=== PATIENT | male | born 1970 | race Caucasian/White ===

== ENCOUNTER → 2021-10-29 12:37 | Outpatient (BNVA) | payer OTHER, SELFPAY | PROVIDERS: PCP Internal Medicine; Visit Provider Physician Assistant Medical | DX: S93.492A Sprain of other ligament of left ankle, initial encounter (principal); X50.1XXA Overexertion from prolonged static or awkward postures, initial encounter | CPT/HCPCS: 73610; 99203 ==

== ENCOUNTER → 2021-11-04 09:02 | Outpatient (BNVA) | payer OTHER, SELFPAY | PROVIDERS: PCP Internal Medicine; Visit Provider Physician Assistant Medical | DX: S93.492A Sprain of other ligament of left ankle, initial encounter (principal); X58.XXXA Exposure to other specified factors, initial encounter | CPT/HCPCS: 99213 ==

== ENCOUNTER → 2021-11-12 08:59 | Outpatient (BNVA) | payer OTHER, SELFPAY | PROVIDERS: PCP Internal Medicine; Visit Provider Physician Assistant Medical | DX: S93.492A Sprain of other ligament of left ankle, initial encounter (principal); X50.1XXA Overexertion from prolonged static or awkward postures, initial encounter | CPT/HCPCS: 99213 ==

== ENCOUNTER → 2021-11-14 09:52 | Outpatient (BNVA) | payer OTHER, SELFPAY | PROVIDERS: PCP Internal Medicine; Visit Provider Physician Assistant | DX: S93.402A Sprain of unspecified ligament of left ankle, initial encounter (principal) | CPT/HCPCS: 99202 ==

== ENCOUNTER → 2021-12-17 11:10 | Outpatient (BNVA) | payer OTHER, SELFPAY | PROVIDERS: PCP Internal Medicine; Visit Provider Physician Assistant | DX: S93.402D Sprain of unspecified ligament of left ankle, subsequent encounter (principal) | CPT/HCPCS: 99212 ==

== ENCOUNTER → 2022-01-14 12:48 | Outpatient (BNVA) | payer OTHER, SELFPAY | PROVIDERS: PCP Internal Medicine; Visit Provider Physician Assistant | DX: S93.402A Sprain of unspecified ligament of left ankle, initial encounter (principal); W01.0XXA Fall on same level from slipping, tripping and stumbling without subsequent striking against object, initial encounter; Y93.89 Activity, other specified; Y92.69 Other specified industrial and construction area as the place of occurrence of the external cause; Y99.0 Civilian activity done for income or pay; Z98.84 Bariatric surgery status | CPT/HCPCS: 99212 ==

== ENCOUNTER 2022-02-03 07:22 | Outpatient (REF) | payer OTHER, SELFPAY ==
--- NOTE | ~2022-02-03 | MR_ITS ---
EXAMINATION: MR ANKLE WITHOUT CONTRAST, LEFT CLINICAL INFORMATION: Left ankle pain both medial and lateral. Injury on 10/29/2021. COMPARISON: Left ankle radiographs dated 10/29/2021. TECHNIQUE: Multisequence MR imaging of the left ankle was obtained without contrast on a high-field strength scanner. FINDINGS: BONE AND ARTICULAR CARTILAGE: Full-thickness articular cartilage fissuring at the medial aspect of the tibial plafond with underlying subchondral cystic change and marrow edema at the base of the medial malleolus. No talar osteochondral lesion. No acute stress reaction or fracture. Plantar and dorsal calcaneal spurs. ACHILLES TENDON: Normal. OTHER TENDONS: Intact. LIGAMENTS: No evidence of acute ligament injury. JOINT FLUID AND SOFT TISSUES: No joint effusion. Subcutaneous soft tissues are normal. PLANTAR FASCIA: Intact plantar fascia. Small plantar calcaneal spur with mild marrow edema. SINUS TARSI AND TARSAL TUNNEL: Normal. MR/MR ankle LT wo con IMPRESSION: 1. Full-thickness articular cartilage fissuring with underlying subchondral cystic change and marrow edema at the medial aspect of the tibial plafond and within the base of the medial malleolus. No talar osteochondral lesion. 2. No acute fracture or stress reaction. 3. Small plantar calcaneal spur and intact plantar fascia. 4. No acute tendon or ligament injury.
== END 2022-02-03 07:23 | disposition home or self-care (01) ==
LOC: HO.MRI 07:22
PROVIDERS: PCP Internal Medicine; Visit Provider Physician Assistant
DX: S93.402A Sprain of unspecified ligament of left ankle, initial encounter (principal)
CPT/HCPCS: 73721

== ENCOUNTER → 2022-02-10 10:18 | Outpatient (BNVA) | payer OTHER, SELFPAY | PROVIDERS: PCP Internal Medicine; Visit Provider Physician Assistant | DX: M25.572 Pain in left ankle and joints of left foot (principal); S90.02XA Contusion of left ankle, initial encounter; X50.3XXA Overexertion from repetitive movements, initial encounter; Y93.89 Activity, other specified; Y92.69 Other specified industrial and construction area as the place of occurrence of the external cause; Y99.8 Other external cause status; Z98.84 Bariatric surgery status | CPT/HCPCS: 99212 ==

== ENCOUNTER 2022-02-28 11:00 | Outpatient (RCR) | payer OTHER, SELFPAY ==
--- NOTE | 2021-11-11 14:44 | MHC.PT.EP ---
[facility] [place] Office [place] Office [place] Office [address] Remy Fraire [address] [phone] F: [phone] F: [phone] F: [phone] F: [phone] Physical Therapy Plan of Care Date of Evaluation: Date of Surgery: N/A Diagnosis: L high lateral ankle sprain Assessment: pt presents w/ hyper-dorsiflexion moment secondary to slipping at work. pt presents to physical therapy with pain, decreased range of motion, decreased strength, impaired functional mobility, impaired postural awareness, and gait deviations. pt is a good candidate for skilled PT due to age, potential remediation of impairments, typical disease/condition progression and prognosis, comorbidities, and motivation. pt would benefit from tailored strengthening and stretching exercise program, functional training, gait training, postural re-training, neuromuscular re-education, modalities as needed for pain, equipment safety demonstration. Frequency and Duration: The patient will be seen 2x/wk for 6 wks Short Term Goals: pt will be I w/ HEP to promote self-management of condition. pt will improve L ankle DF AROM to at least 0 degrees to promote heel strike at initial contact for ambulation using LRAD. pt will progress to WBAT w/ LRAD on even ground to promote progressive weight bearing for household distances. 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 pt will lift 50# object from floor to chest height x5 reps using proper lifting mechanics and no verbal cueing to promote safe lifting for return to work. pt will ambulate >2600' w/o an AD WBAT to promote return to PLOF and access to community. pt will report a statistically significant improvement in self-reported outcome measure, LEFI, to promote return to PLOF. Treatment Plan: Modalities to reduce pain, spasms and effusion. Manual therapy to restore motion and function. Therapeutic exercise to improve strength and flexibility. Neuromuscular re-education for posture and balance. Therapeutic activities to return to functional activities of daily living. Electronically signed by: Ashlee Stoner PT, DPT Please sign and return to therapist. Thank you for your referral.
--- NOTE | 2022-02-28 11:41 | MHC.PT.DC ---
[facility] [place] [facility] [place] Office [place] Office [address] Remy Fraire [address] [phone] F: [phone] F: [phone] F: [phone] F: [phone] Physical Therapy Discharge Report Diagnosis: L high lateral ankle sprain Date of Surgery: N/A Date of Evaluation: 11/11/21 Date of Discharge: 02/28/22 Treatments to Date: 19 Cancellations to Date: 9 No Shows to Date: 0 Discharge Status: Improved Function Independent with HEP Recommend MD Follow-up Discharge Summary: The patient overall has plateaued in his progress with physical therapy. 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 His ankle range of motion and strength are within functional limits. He continues to report persistent lateral ankle pain that radiates up to his lateral knee of a 7/10 intensity. He has trialed therapeutic exercise, therapeutic activity, neuromuscular re-education including proprioception and balance training, modalities such as heat/massage/kinesiotape, and external support such as a lace up-ASO and shoe insert. His home exercise program was reviewed today. He is discharged from this physical therapy plan of care to his home exercise program and recommendations to follow-up with the orthopedic to determine other potential pain management options. Electronically signed by: Ashlee Stoner PT, DPT Please sign and return to therapist. Thank you for your referral.
== END 2022-02-28 11:42 | disposition home or self-care (01) ==
LOC: HO.PT 11:00
PROVIDERS: Visit Provider Physician Assistant Medical
DX: S93.492D Sprain of other ligament of left ankle, subsequent encounter (principal)
CPT/HCPCS: 97110; 97112; 97116; 97140; 97161; 97164; 97530

== ENCOUNTER → 2022-03-24 09:13 | Outpatient (BNVA) | payer OTHER, SELFPAY | PROVIDERS: PCP Internal Medicine; Visit Provider Physician Assistant | DX: S90.02XD Contusion of left ankle, subsequent encounter (principal) | CPT/HCPCS: 99212 ==

== ENCOUNTER → 2022-04-22 09:36 | Outpatient (BNVA) | payer OTHER, SELFPAY | PROVIDERS: PCP Internal Medicine; Visit Provider Physician Assistant | DX: S90.02XD Contusion of left ankle, subsequent encounter (principal); S93.402D Sprain of unspecified ligament of left ankle, subsequent encounter | CPT/HCPCS: 99212 ==

== ENCOUNTER 2023-05-10 12:48 | Emergency (ER) | payer OTHER, SELFPAY ==
--- NOTE | ~2023-05-10 | XR_ITS ---
Examination: Left hip and AP pelvis, lumbar spine, left foot and left ankle. Clinical indications: Pain. No injury. TECHNIQUE: AP pelvis left hip 3 views. Lumbar spine 3 views. Left foot 3 views and left ankle 2 views. FINDINGS: AP pelvis and left hip: There is normal symmetry of bilateral hip joints and SI joints without bony erosive changes. AP and frog-leg views left hip reveals no visible fracture, dislocation or subluxation. No soft tissue abnormality. Lumbar spine: There is normal lumbar lordosis. The vertebral heights, alignment and disc heights are normal. Is mild ventral spondylosis and anterior superior endplates of L4-L5 vertebra. No aggressive lytic or sclerotic process seen. Left foot: There is no visible acute fracture, dislocation subluxation seen. There is a small enthesophyte along the base of fifth metatarsal and proximal end proximal phalanx first digit laterally. No aggressive lytic or sclerotic process seen. The soft tissues are normal. Left ankle: The ankle mortise and subtalar joints are normal. There is a moderate size retrocalcaneal and small calcaneal heel enthesophyte. The soft tissues are normal. XR/XR ankle LT min 3V IMPRESSION: No visible acute fracture, dislocation seen in the AP pelvis of the left hip x-rays. There is moderate ventral and chest x-ray enthesophytes along the L4-L5 vertebra. No acute fracture or dislocation seen. There are enthesophytes along the left foot in the left distal medial tibia retrocalcaneal and calcaneal heel and left foot. No fracture visible fracture or dislocation seen.
--- NOTE | ~2023-05-10 | XR_ITS ---
Examination: Left hip and AP pelvis, lumbar spine, left foot and left ankle. Clinical indications: Pain. No injury. TECHNIQUE: AP pelvis left hip 3 views. Lumbar spine 3 views. Left foot 3 views and left ankle 2 views. FINDINGS: AP pelvis and left hip: There is normal symmetry of bilateral hip joints and SI joints without bony erosive changes. AP and frog-leg views left hip reveals no visible fracture, dislocation or subluxation. No soft tissue abnormality. Lumbar spine: There is normal lumbar lordosis. The vertebral heights, alignment and disc heights are normal. Is mild ventral spondylosis and anterior superior endplates of L4-L5 vertebra. No aggressive lytic or sclerotic process seen. Left foot: There is no visible acute fracture, dislocation subluxation seen. There is a small enthesophyte along the base of fifth metatarsal and proximal end proximal phalanx first digit laterally. No aggressive lytic or sclerotic process seen. The soft tissues are normal. Left ankle: The ankle mortise and subtalar joints are normal. There is a moderate size retrocalcaneal and small calcaneal heel enthesophyte. The soft tissues are normal. XR/XR lumbar spine 2-3V IMPRESSION: No visible acute fracture, dislocation seen in the AP pelvis of the left hip x-rays. There is moderate ventral and chest x-ray enthesophytes along the L4-L5 vertebra. No acute fracture or dislocation seen. There are enthesophytes along the left foot in the left distal medial tibia retrocalcaneal and calcaneal heel and left foot. No fracture visible fracture or dislocation seen.
--- NOTE | ~2023-05-10 | XR_ITS ---
Examination: Left hip and AP pelvis, lumbar spine, left foot and left ankle. Clinical indications: Pain. No injury. TECHNIQUE: AP pelvis left hip 3 views. Lumbar spine 3 views. Left foot 3 views and left ankle 2 views. FINDINGS: AP pelvis and left hip: There is normal symmetry of bilateral hip joints and SI joints without bony erosive changes. AP and frog-leg views left hip reveals no visible fracture, dislocation or subluxation. No soft tissue abnormality. Lumbar spine: There is normal lumbar lordosis. The vertebral heights, alignment and disc heights are normal. Is mild ventral spondylosis and anterior superior endplates of L4-L5 vertebra. No aggressive lytic or sclerotic process seen. Left foot: There is no visible acute fracture, dislocation subluxation seen. There is a small enthesophyte along the base of fifth metatarsal and proximal end proximal phalanx first digit laterally. No aggressive lytic or sclerotic process seen. The soft tissues are normal. Left ankle: The ankle mortise and subtalar joints are normal. There is a moderate size retrocalcaneal and small calcaneal heel enthesophyte. The soft tissues are normal. XR/XR hip LT w PEL1V IMPRESSION: No visible acute fracture, dislocation seen in the AP pelvis of the left hip x-rays. There is moderate ventral and chest x-ray enthesophytes along the L4-L5 vertebra. No acute fracture or dislocation seen. There are enthesophytes along the left foot in the left distal medial tibia retrocalcaneal and calcaneal heel and left foot. No fracture visible fracture or dislocation seen.
--- NOTE | ~2023-05-10 | XR_ITS ---
Examination: Left hip and AP pelvis, lumbar spine, left foot and left ankle. Clinical indications: Pain. No injury. TECHNIQUE: AP pelvis left hip 3 views. Lumbar spine 3 views. Left foot 3 views and left ankle 2 views. FINDINGS: AP pelvis and left hip: There is normal symmetry of bilateral hip joints and SI joints without bony erosive changes. AP and frog-leg views left hip reveals no visible fracture, dislocation or subluxation. No soft tissue abnormality. Lumbar spine: There is normal lumbar lordosis. The vertebral heights, alignment and disc heights are normal. Is mild ventral spondylosis and anterior superior endplates of L4-L5 vertebra. No aggressive lytic or sclerotic process seen. Left foot: There is no visible acute fracture, dislocation subluxation seen. There is a small enthesophyte along the base of fifth metatarsal and proximal end proximal phalanx first digit laterally. No aggressive lytic or sclerotic process seen. The soft tissues are normal. Left ankle: The ankle mortise and subtalar joints are normal. There is a moderate size retrocalcaneal and small calcaneal heel enthesophyte. The soft tissues are normal. XR/XR foot LT 2V IMPRESSION: No visible acute fracture, dislocation seen in the AP pelvis of the left hip x-rays. There is moderate ventral and chest x-ray enthesophytes along the L4-L5 vertebra. No acute fracture or dislocation seen. There are enthesophytes along the left foot in the left distal medial tibia retrocalcaneal and calcaneal heel and left foot. No fracture visible fracture or dislocation seen.
--- NOTE | 2023-05-10 13:02 | ED_ITS ---
HPI - General Adult General Chief complaint: Extremity Injury, Lower Stated complaint: L foot pain Time Seen by Provider: 05/10/23 14:20 Source: patient Mode of arrival: ambulatory Limitations: no limitations History of Present Illness HPI narrative: 53 yo male w/ history of chronic left ankle pain here with continued left ankle pain, now with left sided lower back pain with radiation to left hip and down left thigh since last night. No numbness/tingling of the legs. No numbness in the groin. No bowel or bladder incontinence. No fevers, chills. Taking OTC with no relief. No falls or injury Related Data Home Medications Medication Instructions Recorded Confirmed cholecalciferol (vitamin D3) 50 50 mcg PO DAILY 03/24/22 mcg (2,000 unit) capsule ferrous sulfate 324 mg (65 mg 324 mg PO BID 03/24/22 iron) tablet,delayed release multivitamin with folic acid 400 1 tab PO DAILY 03/24/22 mcg tablet (Daily-Nicolette (with folic acid)) naproxen sodium 550 mg tablet 550 mg PO BID PRN 03/24/22 omeprazole 20 mg tablet,delayed 20 mg PO DAILY 03/24/22 release Previous Rx's Medication Instructions Recorded cyclobenzaprine 10 mg tablet 10 mg PO TID PRN muscle spasm #15 05/10/23 tabs naproxen 500 mg tablet 500 mg PO BID PRN pain #30 tabs 05/10/23 prednisone 20 mg tablet 40 mg PO DAILY #10 tabs 05/10/23 Allergies Allergy/AdvReac Type Severity Reaction Status Date / Time No Known Allergies Allergy Verified 05/10/23 13:16 Review of Systems Review of Systems: Yes all other systems are reviewed and are negative Constitutional: Constitutional: Reports no additional constitutional complaints, Denies body ache(s), Denies chills, Denies fever(s), Denies headache(s) and Denies weakness Eyes: Eyes: Reports no additional eye complaints and Denies change in vision ENT: Reports system reviewed and no additional complaints, except as documented, Denies dizziness, Denies headache(s), Denies nasal congestion, Denies nasal discharge and Denies neck pain Cardiovascular: Cardiovascular: Reports no additional cardiovascular complaints, Denies chest pain, Denies leg edema and Denies dyspnea Respiratory: Respiratory: Reports no additional respiratory complaints, Denies cough and Denies dyspnea Gastrointestinal: Gastrointestinal: Reports no additional gastrointestinal complaints, Denies abdominal pain, Denies diarrhea, Denies nausea and Denies vomiting Genitourinary: Genitourinary: Denies urinary incontinence Musculoskeletal: Musculoskeletal: Reports no additional musculoskeletal complaints, Reports back pain, Reports arthralgias, Reports joint swelling, Denies neck pain, Denies numbness and Denies tingling Integumentary/Breasts: Skin/Breast: Reports system reviewed and no additional complaints, except as docu and Denies rash Neurologic: Reports system reviewed and no additional complaints, except as documented, Denies dizziness, Denies headache(s), Denies numbness, Denies tingling and Denies weakness PMFSH Past Medical History Attestation statement: The following information was validated with the patient. 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 Physical Exam ED Vital Signs: Vital Signs - 24 hr 05/10/23 13:16 Temperature 98 F Pulse Rate 72 Respiratory Rate 19 Blood Pressure 128/85 Pulse Oximetry 98 BMI result Body Mass Index 29.1 Const General: cooperative, healthy appearing, comfortable and no acute distress Orientation/consciousness: patient oriented x3 Limitations: no limitations HENMT Head: Yes normal to inspection Ears: hearing grossly normal bilaterally Eyes General: appearance normal, both eyes and all related structures Pupils: Equal, round and reactive pupils present Neck Neck: Yes normal visual inspection Chest Chest palpation & inspection: normal inspection of the chest Resp Effort & Inspection: normal respiratory effort Auscultation: clear to auscultation bilaterally Cardio Rate: regular rate Rhythm: regular rhythm Peripheral pulses: Peripheral pulses 2+ throughout GI Inspection: Yes normal to inspection Palpation (GI): Soft to palpation and nontender Back/Spine/Pelvis Other: TTP over lumbar spine/left lumbar soft tissue, left lateral hip worsened with straight leg raise left side. No step offs or deformities Thoracic/Lumbar Spine: thoracic and lumbar spine normal to inspection Skin General skin exam: no rashes or lesions noted Neuro General: patient oriented x3 and moves all extremities Cranial nerves: Yes Equal, round and reactive pupils present Cognition (Neuro): normal cognition Gait exam (Neuro): Normal gait present Motor exam (neuro): 5/5 motor strength present throughout Sensory Exam: Normal double simultaneous stimulation for sensation Deep tendon reflexes (DTR's): Right patellar reflex intensity grade: 2+ and Left patellar reflex intensity grade: 2+ Course Course Course Narrative: This is an RME: Additional HPI, ROS, PE not included below will be deferred to primary provider. Patient is a 53 year old male presenting with left ankle pain present for the past year however reports radiation of pain up to knee and hip since Thursday. Patient is followed by the orthopedic team here for ankle pain and had an ankle MRI done 02/03/22. Reports pain currently 09/01. PE- Full ROM to left ankle however uncomfortable Plan- imaging Reevaluation(s) Reevaluation #1: X-rays of the back show no acute fracture or dislocation. There is degenerative changes seen in the lower back. There are also chronic changes seen in the left ankle. Likely lumbar radiculopathy. Patient be discharged home with NSAIDs, muscle relaxants and recommendations follow-up with primary care doctor outpatient. Reviewed worrisome signs and symptoms of when to return to the emergency room. Comfortable plan for discharge home. Medications Administered Discontinued Medications Generic Name Dose Route Start Last Admin Trade Name Sarojq PRN Reason Stop Dose Admin Ketorolac Tromethamine 30 mg 05/10/23 14:41 05/10/23 14:50 Ketorolac Tromethamine 30 Mg/Ml Vial IM 05/10/23 14:42 30 mg ONCE ONE Administration Medical Decision Making Medical Decision Making [facility] Narrative: 53 yo male with history of chronic left ankle pain here with complaints of atraumatic left lower back pain with radiation to left hip since last evening. No overt neurological deficits or red flag symptoms. There is tenderness impatient over the posterior lumbar soft tissue left side and over the left hip. Will check x-rays. Patient had x-rays of the left ankle and foot done triage. He reports is a chronic pain with no new injury or trauma. Differential Diagnosis Differential Diagnoses: The differential diagnosis associated with the presentation includes Lumbar radiculopathy, herniated disc, lumbar strain Low concern for cord compression, cauda equina, fracture, malignancy, epidural abscess Independent Interpretation I performed an independent interpretation of an: Plain X-Ray Interpretation: I independently reviewed the x-rays and agree with the radiologist's report Radiology Impression Discussion of test interpretation with radiology: I have reviewed the radiologist's reading. Radiologist Impression: [address] [address] XRay Report Signed Patient: Cale Guillen MR#: [id number] : 1970 Acct:[id number] Age/Sex: 53 / M ADM Date: 05/10/23 Loc: HO.ED Attending Dr: Ordering Physician: Grazyna Ramírez NP Date of Service: 05/10/23 Procedure(s): XR hip LT w PEL1V Accession Number(s): [id number] cc: Grazyna Ramírez NP~ Examination: Left hip and AP pelvis, lumbar spine, left foot and left ankle. Clinical indications: Pain. No injury. TECHNIQUE: AP pelvis left hip 3 views. Lumbar spine 3 views. Left foot 3 views and left ankle 2 views. FINDINGS: AP pelvis and left hip: There is normal symmetry of bilateral hip joints and SI joints without bony erosive changes. AP and frog-leg views left hip reveals no visible fracture, dislocation or subluxation. No soft tissue abnormality. Lumbar spine: There is normal lumbar lordosis. The vertebral heights, alignment and disc heights are normal. Is mild ventral spondylosis and anterior superior endplates of L4-L5 vertebra. No aggressive lytic or sclerotic process seen. Left foot: There is no visible acute fracture, dislocation subluxation seen. There is a small enthesophyte along the base of fifth metatarsal and proximal end proximal phalanx first digit laterally. No aggressive lytic or sclerotic process seen. The soft tissues are normal. Left ankle: The ankle mortise and subtalar joints are normal. There is a moderate size retrocalcaneal and small calcaneal heel enthesophyte. The soft tissues are normal. XR/XR hip LT w PEL1V IMPRESSION: No visible acute fracture, dislocation seen in the AP pelvis of the left hip x-rays. ? There is moderate ventral and chest x-ray enthesophytes along the L4-L5 vertebra. No acute fracture or dislocation seen. ? There are enthesophytes along the left foot in the left distal medial tibia retrocalcaneal and calcaneal heel and left foot. No fracture visible fracture or dislocation seen. Discharge Plan Discharge Clinical Impression: Acute left lumbar radiculopathy Patient Disposition: Home, Self-Care Instructions: Lumbar Radiculopathy (ED) Additional Instructions: Heat or ice Gentle stretch Follow-up with primary care doctor for any continued symptoms Prescriptions: New prednisone 20 mg tablet 40 mg PO DAILY Qty: 10 0RF cyclobenzaprine 10 mg tablet 10 mg PO TID PRN (Reason: muscle spasm) Qty: 15 0RF naproxen 500 mg tablet 500 mg PO BID PRN (Reason: pain) Qty: 30 0RF No Action multivitamin with folic acid [Daily-Nicolette (with folic acid)] 400 mcg tablet 1 tab PO DAILY cholecalciferol (vitamin D3) 50 mcg (2,000 unit) capsule 50 mcg PO DAILY ferrous sulfate 324 mg (65 mg iron) tablet,delayed release (DR/EC) 324 mg PO BID naproxen sodium 550 mg tablet 550 mg PO BID PRN omeprazole 20 mg tablet,delayed release (DR/EC) 20 mg PO DAILY Referrals: Almaz Celis MD [Primary Care Provider] - 1 week
[2023-05-10 13:16] VITALS: BP 128/85; PULSE 72; RESP 19; TEMP 36.6; O2SAT 98; BMI 29.1
[2023-05-10] MEDS: Ketorolac Tromethamine 30 MG/ML VIAL IM (14:50)
== END 2023-05-10 17:06 | disposition home or self-care (01) ==
PROVIDERS: Emergency Provider Student in an Organized Health Care Education/Training Program; PCP Internal Medicine
DX: M54.16 Radiculopathy, lumbar region (principal)
CPT/HCPCS: 72100; 73502; 73610; 73620; 96372; 99283; 99284; J1885